=== PATIENT | female | born 1945 ===

== ENCOUNTER 2017-08-29 05:58 | Day surgery (SDC) | payer MEDICARE, MEDICAID ==
--- NOTE | 2017-08-28 14:24 | Pre-Procedure Note/Attestation ---
Pre-Procedure Note/Attestation Complete Prior to Procedure Planned Procedure: left Procedure Narrative: phaco with IOL Indications for Procedure Pre-Operative Diagnosis: cataract Attestation I attest that I discussed the nature of the procedure; its benefits; risks and complications; and alternatives (and the risks and benefits of such alternatives ), prior to the procedure, with the patient (or the patient's legal guest service representative). I attest that, if there was a reasonable possibility of needing a blood transfusion, the patient (or the patient's legal guest service representative) was given the [facility] standardized written summary, pursuant to the [place]agan [place]lim[place] Blood Safety Act ([place] Health and Safety Code # 1645, as amended). I attest that I re-evaluated the patient just prior to the surgery and that there has been no change in the patient's H&P, except as documented below: JOJO YOUNGBLOOD Aug 28, 2017 14:24
--- NOTE | 2017-08-28 14:26 | Opthalmology H&P ---
Ophthalmology H&P H&P Chief Complaint: decreased vision in left eye HPI Vision Affects Ability to: focus/use eyes together HPI Narrative blurry vision Exam Visual Acuity: OD: 20/80 OS: 20/125 Tension: OD: 14 OS: 15 Eye Exam: normal OU: external exam, palpebral fissure-width, marginal reflex distance, levator function, corneas, anterior chambers, fundus exam, findings: lens - OD: NS os; NS Assessment/Plan Diagnosis: (1) Cataract Treatment Plan: cataract extraction w/ lens implant Goals of Treatment: improvement of vision, enhance quality of life Attestation Attestation The risks and benefits of the surgery as well as alternative procedures were explained to the patient in detail. JOJO YOUNGBLOOD Aug 28, 2017 14:26
[~2017-08-29] VITALS: Ht 152.4 cm; Wt 56.7 kg
[2017-08-29] VITALS (7 sets, daily range): BP systolic 111–158; BP diastolic 60–88
[2017-08-29] MEDS: Ketorolac Tromethamine Opth 5ml Soln LEFT EYE SCH ×3 (06:32→06:56)
[2017-08-29] MEDS: Tropicamide 1% Opth 15ml Soln LEFT EYE SCH ×3 (06:32→06:55)
[2017-08-29] MEDS: Cyclopentolate 1% Opth Sol 2ml LEFT EYE SCH ×3 (06:32→06:56)
[2017-08-29] MEDS: Phenylephrine 10% Opth Soln 5ml LEFT EYE SCH ×3 (06:32→06:56)
[2017-08-29] MEDS: Tobramycin Op Soln 0.3% 5ml LEFT EYE SCH ×3 (06:33→06:56)
[2017-08-29] MEDS ORDERED: Carbachol 0.01% Op Soln 1.5ml vial ONE (06:50)
[2017-08-29] MEDS ORDERED: Dexamethasone 4mg/ml vial ONE ×2 (06:50→07:45)
[2017-08-29] MEDS ORDERED: Tetracaine 0.5% Opth 4ml Soln ONE (06:50)
[2017-08-29] MEDS ORDERED: Povidone-Iodine 5% opth solution ONE (06:50)
[2017-08-29] MEDS ORDERED: Sodium Hyaluronate 14 mg/ml 0.85ml ONE (06:51)
[2017-08-29] MEDS ORDERED: BSS 15ml BTL ONE ×2 (06:51→09:29)
[2017-08-29] MEDS ORDERED: Lidocaine 2% MPF 5ml Vial INJ ONE (06:51)
[2017-08-29] MEDS ORDERED: EPINEPHrine 1mg/1ml Amp ONE ×2 (06:51→07:45)
[2017-08-29] MEDS ORDERED: Akten 3.5% 1ml Btl LEFT EYE ONE (07:00)
[2017-08-29] MEDS ORDERED: VITAMIN D22000 UNIT PO (07:05)
[2017-08-29] MEDS ORDERED: METFORMIN HCL500 M4 ORAL (07:05)
[2017-08-29] MEDS ORDERED: ASPIR 8181 MG ORAL (07:05)
[2017-08-29] MEDS ORDERED: AMITIZA24 MCG ORAL (07:05)
[2017-08-29] MEDS ORDERED: OMEPRAZOLE20 M2 ORAL (07:05)
[2017-08-29] MEDS ORDERED: ATORVASTATIN CA20 MG ORAL (07:05)
[2017-08-29] MEDS ORDERED: LASIX20 M1 ORAL (07:05)
[2017-08-29] MEDS ORDERED: PREDNISOLO15 MG/5 M1 ORAL (07:05)
[2017-08-29 07:19] LABS: BASOPHILS % (AUTO) 0.9 % (0.0-2.0); LYMPHOCYTES % (AUTO) 16.9 % (20.0-45.0); MEAN CORPUSCULAR HEMOGLOBIN 30.4 PG (27.0-31.0); MEAN CORPUSCULAR VOLUME 95 FL (80-99); MEAN PLATELET VOLUME 10.6 FL (6.5-10.1); MONOCYTES % (AUTO) 6.6 % (1.0-10.0); NEUTROPHILS % (AUTO) 72.6 % (45.0-75.0); PLATELET COUNT 158 K/UL (150-450); RED BLOOD COUNT 4.28 M/UL (4.20-5.40); RED CELL DISTRIBUTION WIDTH 12.7 % (11.6-14.8); WHITE BLOOD COUNT 6.3 K/UL (4.8-10.8)
--- NOTE | 2017-08-29 07:34 | Anethesia Preoperative Eval ---
Anesthesia Pre-op PMH/ROS General Date of Evaluation: Aug 29, 2017 Time of Evaluation: 07:33 Anesthesiologist: tom ASA Score: ASA 2 Mallampati Score Class I : Soft palate, uvula, fauces, pillars visible Class II: Soft palate, uvula, fauces visible Class III: Soft palate, base of uvula visible Class IV: Only hard plate visible Mallampati Classification: Class II Surgeon: rupal Diagnosis: cataract Surgical Procedure: cataract extraction left eye Anesthesia History: none Family History: no anesthesia problems Allergies: Coded Allergies: No Known Allergies (Unverified , 08/29/17) Medications: see eMAR Past Medical History Cardiovascular: Denies: HTN, CAD, [place], valve dz, arrhythmia, other Pulmonary: Reports: other - chronic bronchitis Gastrointestinal/Genitourinary: Denies: GERD, CRI, ESRD, other Neurologic/Psychiatric: Denies: dementia, CVA, depression/anxiety, TIA, other Endocrine: Reports: DM, hypothyroidism HEENT: Reports: cataract (L) Hematology/Immune: Denies: anemia, DVT, bleeding disorder, other Musculoskeletal/Integumentary: Reports: OA PMH Narrative: chronic pain PSxH Narrative: unknown Anesthesia Pre-op Phys. Exam Physician Exam Last Vital Signs Date Time Temp Pulse Resp B/P (MAP) Pulse Ox O2 Delivery O2 Flow Rate FiO2 08/29/17 07:06 97.6 80 17 141/78 95 Room Air Constitutional: NAD Neurologic: CN 2-12 intact Cardiovascular: RRR Respiratory: CTA Gastrointestinal: S/NT/ND Airway Exam Mallampati Score: Class II ROM: full Dentures: upper, lower Anesthesia Pre-op A/P Labs Hematology Test 08/29/17 06:30 White Blood Count 6.3 K/UL (4.8-10.8) Red Blood Count 4.28 M/UL (4.20-5.40) Hemoglobin 13.0 G/DL (12.0-16.0) Hematocrit 40.7 % (37.0-47.0) Mean Corpuscular Volume 95 FL (80-99) Mean Corpuscular Hemoglobin 30.4 PG (27.0-31.0) Mean Corpuscular Hemoglobin Concent 32.0 G/DL (32.0-36.0) Red Cell Distribution Width 12.7 % (11.6-14.8) Platelet Count 158 K/UL (150-450) Mean Platelet Volume 10.6 FL (6.5-10.1) H Neutrophils (%) (Auto) 72.6 % (45.0-75.0) Lymphocytes (%) (Auto) 16.9 % (20.0-45.0) L Monocytes (%) (Auto) 6.6 % (1.0-10.0) Eosinophils (%) (Auto) 3.0 % (0.0-3.0) Basophils (%) (Auto) 0.9 % (0.0-2.0) Chemistry Test 08/29/17 06:30 Sodium Level Pending Potassium Level Pending Chloride Level Pending Carbon Dioxide Level Pending Blood Urea Nitrogen Pending Creatinine Pending Estimat Glomerular Filtration Rate Pending Glucose Level Pending Calcium Level Pending Studies Pre-op Studies: EKG - sr Risk Assessment & Plan Plan: mac Status Change Before Surgery: No Pre-Antibiotics Drug: none CAMERON MIKE CRNA Aug 29, 2017 07:34
[2017-08-29] MEDS ORDERED: BSS 500ml btl ONE (07:45)
[2017-08-29] MEDS ORDERED: fentaNYL 100 mcg/2 mL IV ONE (07:45)
[2017-08-29] MEDS ORDERED: NS Irrig 1000ml ONE (07:45)
[2017-08-29] MEDS ORDERED: Pred Forte 1% Opth Susp 1ml ONE (07:45)
[2017-08-29] MEDS ORDERED: Maxitrol Opth Oint 3.5gm ONE (07:45)
[2017-08-29] MEDS ORDERED: Sterile Water Irrig 1000ml IRRIG ONE (07:45)
[2017-08-29] MEDS ORDERED: Midazolam 2mg/2ml Inj ONE (07:45)
[2017-08-29] MEDS ORDERED: LR 1000ml ONE (07:45)
--- NOTE | 2017-08-29 08:32 | Immediate Post-Op Evaluation ---
Immediate Post-Op Evalulation Immediate Post-Op Evalulation Procedure: cataract left Date of Evaluation: Aug 29, 2017 Time of Evaluation: 08:30 IV Fluids: 500 Blood Pressure Systolic: 138 Blood Pressure Diastolic: 73 Pulse Rate: 80 Respiratory Rate: 14 O2 Sat by Pulse Oximetry: 100 Temperature (Fahrenheit): 98.5 Pain Score (1-10): 0 Nausea: No Vomiting: No Complications none Patient Status: awake, reacts, patent Drug: none TARRILLION,CAMERON GROMMET MAN Aug 29, 2017 08:32
--- NOTE | 2017-08-29 09:03 | 48 Hour Post Anesthesia Eval ---
Post Anesthesia Evaluation Procedure: cataract left Date of Evaluation: Aug 29, 2017 Time of Evaluation: 09:02 Blood Pressure Systolic: 111 0: 62 Pulse Rate: 70 Respiratory Rate: 14 O2 Sat by Pulse Oximetry: 100 Airway: patent Nausea: No Vomiting: No Hydration Status: adequate Cardiopulmonary Status: stable Mental Status/LOC: patient returned to baseline Follow-up Care/Observations: per opth Post-Anesthesia Complications: none Follow-up care needed: N/A CAMERON MIKE CRNA Aug 29, 2017 09:03
--- NOTE | 2017-08-29 11:11 | Brief Operative Note ---
Immediate Post Operative Note Operative Note Chief Complaint: blurry vision Pre-op Diagnosis: cataract, OS Procedure: phaco with IOL, OS Post-op Diagnosis: Pseudophakia Post-op Diagnosis: same as pre-op Findings: consistent w/pre-op dx studies Surgeon: Suzanne Anesthesiologist: Russel Anesthesia: MAC Specimen: none Complications: none Condition: stable Fluids: LR Estimated Blood Loss: none Drains: none Implant(s) used?: Yes JOJO YOUNGBLOOD Aug 29, 2017 11:11
--- NOTE | 2017-08-29 11:18 | Operative Note - PDOC ---
Operative Note Operative Note Date of Operation/Procedure: Aug 29, 2017 Chief Complaint: blurry vision Pre-op Diagnosis: cataract, OS Procedure: phaco with IOL, OS Post-op Diagnosis: Pseudophakia Post-op Diagnosis: same as pre-op Operative Findings: consistent w/pre-op dx studies Surgeon: Suzanne Anesthesiologist: Russel Anesthesia: MAC Specimen: none Complications: none Condition: stable Fluids: LR Estimated Blood Loss: none Drains: none Implant(s) used?: Yes Indications for Procedure cataract Description of Procedure This patient has been complaining visually significant cataract in the affected eye with the best corrected visual acuity under moderate glare conditions worse. The patient complains of difficulties with glare in performing activities of daily living and wants to manage personal affairs with comfort and accuracy and see well enough to move with safety at home and outdoors. The risks, benefits and alternatives of the procedure were discussed with the patient in the office prior to scheduling surgery. All questions from the patient were answered after the surgical procedure was explained in detail. The risks of the procedure as explained to the patient include, but are not limited to, pain, infection, bleeding, loss of vision, retinal detachment, need for further surgery, loss of lens nucleus, double vision, etc. Alternative procedures were discussed which include, to do nothing or seek a second opinion. Informed consent for this procedure was obtained from the patient. The patient was referred to a primary care physician for a cardiopulmonary clearance prior to surgery, after proper evaluation was done patient was properly scheduled for outpatient surgery. The patient was brought to the operating room where the anesthesiologist established I.V. lines and cardiac monitoring leads. Mild intravenous sedation was administered. Using a solution containing 0.75% Marcaine and 2% lidocaine with Wydase, a peribulbar block was administered to the eye. The patient was then prepared with a 5% solution of povidone-iodine to the conjunctival fornix and lashes, and a 10% solution of povidone-iodine to the lids and periorbital skin. The patient was then draped in the usual sterile fashion. A lid speculum was then placed in the operative eye. A keratome blade was then used to create a biplanar incision into the anterior chamber. Viscoelastics was then instilled into the anterior chamber. A capsulorrhexis was then fashioned with an utrata forceps followed by hydrodissection and hydro delineation of the lens. Paracentesis incision was made at 3 o'clock with sharp blade. The phacoemulsification unit, after being properly adjusted and tested, was then used to emulsify the nucleus followed by aspiration and irrigation of residual cortical material. Healon was then instilled into the anterior chamber. The corneal wound was then enlarged to the size of the optic with the estefani keratome blade. The intraocular lens was then inspected for right power and size and thought to be satisfactory. Then the lens was gently placed in the capsular bag. Positioning within the capsular bag was confirmed by direct visualization. Optic centration was accomplished with a Sinskey hook. Viscoelastics was removed from the anterior chamber using the irrigation and aspiration unit. The corneal wound was then tested for leaks and none were found. The lid speculum were then removed. Sponge and needle counts were correct. An eye patch and shield were placed over the operative eye. The patient was taken to the recovery room in stable condition. There were no complications. The patient tolerated the procedure well. The patient was then transferred to the ambulatory surgery unit in stable and satisfactory condition , was given detailed written instructions and asked to follow up in the office the next day. Dictated & Transcribed: [facility] Pastor MATA JAMES Aug 29, 2017 11:18
--- NOTE | 2017-08-29 17:30 | Pre-op HX & Phy Repo 2 SIG ---
DATE OF ADMISSION: 08/29/2017 PRESURGICAL INTERNAL MEDICINE HISTORY AND PHYSICAL Reason For Evaluation: I was asked by Dr. Handy Palacios to see this 72-year-old Frisian-speaking female who is going for elective surgery on the left eye. The patient has a cataract, left eye. Please see full Ophthalmology History and Physical by Dr. Handy Palacios. The patient was evaluated. Chart was reviewed. Information obtained through the daughter by the bedside. Past Medical History/Review of Systems: Remarkable for history of type 2 diabetes mellitus, chronic bronchitis, history of arthritis, chronic constipation, and history of phlebitis of both lower extremities long time ago. Denies history of stroke or seizures. No hypertension. No history of heart attack, chest pain or palpitations. Denies history of thyroid problem. Denies history of renal failure. No dysuria. No peptic ulcer disease. No hepatitis. PAST SURGICAL HISTORY: None. Family History: Mother has diabetes mellitus and arthritis. Father unknown. ALLERGIES: Not known. PRESENT MEDICATIONS: 1. Inhaler Symbicort. 2. Amitiza. 3. Folic acid. 4. Prednisone 1 mg daily. 5. Omeprazole daily. 6. Baby aspirin. 7. Metformin 500 mg twice a day. Habits: The patient denies history of smoke or alcohol habits. No alcohol or street drugs. PHYSICAL EXAMINATION: General: Alert, well-developed, well-nourished female, in her 70s, in no acute distress. Vital Signs: Blood pressure 141/78, temperature 97.6 degrees, pulse 80 and regular, respirations 18, and O2 saturation 95% on room air. HEENT: Head, normocephalic and atraumatic. Ears, clear. No discharge. Eyes, full description per Dr. Handy Palacios. No conjunctivitis. Mouth, clear and moist. No dentures. Neck: No jugular vein distention. Carotids artery +2. Trachea midline. No thyroid mass. Skin: Warm and dry. Atrophic dermatitis on the lower extremities, both [place], brownish discoloration. LYMPHATICS: Lymph nodes not enlarged. HEART: Sinus rhythm. No ectopy. No murmur. No S3 or S4. Abdomen: Soft. No rebound. No palpable mass. Liver and spleen not enlarged. Extremities: No edema. Varicose vein of both lower extremities and old phlebitis. Genitourinary Tract: Denies history of dysuria. No CVA tenderness. No palpable mass. NERVOUS SYSTEM: No asymmetry. No tremors. Diagnostic and Laboratory Data: ECG, normal sinus rhythm, 79 per minute, left ventricular hypertrophy and repolarization abnormality. The patient did not eat or drink from 6 p.m. yesterday, did not take any medication. Blood sugar fasting today this morning 114. Rest of the laboratory work pending. IMPRESSION: 1. Cataract, left eye. 2. Type 2 diabetes mellitus, which had complication. 3. Left ventricular hypertrophy on EKG. 4. Chronic bronchitis, on steroids. 5. Chronic constipation. 6. History of old phlebitis in lower extremities bilaterally. 7. Chronic arthritis. Plan: Cataract extraction, left eye with intraocular lens implant per Dr. Handy Palacios. Conclusion: The patient is a 72-year-old Frisian-speaking female, has history of chronic bronchitis and type 2 diabetes mellitus, both controlled. The patient is on prednisone and steroid inhalers. The patient has changes on EKG, consider left ventricular hypertrophy. Her blood sugar is controlled. The patient did not eat or drink from 6 p.m. last night. The patient's condition optimized for surgery. Thank you very much, Dr. Palacios, for privilege to participate in the presurgical care of this interesting patient. Carson Mclaughlin M.D. DR: TANESHA JOB#: [id number] CC:
--- NOTE | 2017-09-04 23:13 | Cardiology Report ---
APPROVED REPORT EKG Measurement Heart [id number] Normal sinus rhythm Left ventricular hypertrophy with repolarization abnormality Abnormal ECG
== END 2017-08-29 09:30 | disposition home or self-care (01) ==
LOC: EDBD 05:58 → SUR 05:58
DX: H26.9 Unspecified cataract (principal); E11.9 Type 2 diabetes mellitus without complications; E03.9 Hypothyroidism, unspecified; M19.90 Unspecified osteoarthritis, unspecified site; Z79.82 Long term (current) use of aspirin; Z79.84 Long term (current) use of oral hypoglycemic drugs; K59.00 Constipation, unspecified; Z83.3 Family history of diabetes mellitus; Z82.61 Family history of arthritis; Z79.52 Long term (current) use of systemic steroids; I51.7 Cardiomegaly; J42 Unspecified chronic bronchitis
CPT/HCPCS: 36415; 66984; 82962; 85025; 93005; J0171; J1100; J2250; J3010; J3370; J7120; V2632; 94003; 94150